=== PATIENT | female | born 1995 | race Caucasian/White ===

== ENCOUNTER → 2017-05-28 | Outpatient (CLI) | payer OTHER ==
[~2017-05-28] MED LIST: FERR1TAB61; FLV1; PRENTAB26 PO
[2017-05-28 13:21] LABS: BASO % 0.3 %; BASO ABS # 0.02 K/uL (0-0.2); COMPLETE YES; EOS % 1.5 %; HEMATOCRIT 28.5 % (37-47); LYMPH % 25.9 %; LYMPH ABS # 2.01 K/uL (1.2-3.4); MEAN CELL VOLUME 84.8 fL (80-100); MEAN CORPUSCULAR HEMOGLOBIN 27.4 pg (25-34); MEAN CORPUSCULAR HGB CONC 32.3 g/dl (32-36); MONO % 7.3 %; PLATELET COUNT 217 K/uL (130-400); RED BLOOD COUNT 3.36 M/uL (4.2-5.4); WHITE BLOOD COUNT 7.77 K/uL (4.8-10.8)
[2017-05-28 13:47] LABS: GTGD 50 Grams
[2017-05-28 15:48] LABS: URINE APPEARANCE CLEAR (CLEAR); URINE BILIRUBIN NEG (NEG); URINE COLOR YELLOW; URINE EPITHELIAL CELL AUTO >30 /lpf (0-5); URINE NITRITE NEG (NEG); URINE SPECIFIC GRAVITY 1.022 (1.000-1.030); UROBILINOGEN NEG (NEG)
[2017-05-28 15:57] LABS: MANUAL MICROSCOPIC REQUIRED? NO; REVIEW REQ? NO
== END | disposition home or self-care (01) ==
LOC: C.LAB1850 11:08
PROVIDERS: ATTEND Obstetrics & Gynecology
DX: O09.33 Supervision of pregnancy with insufficient antenatal care, third trimester (principal)

== ENCOUNTER → 2017-05-28 | Outpatient (CLI) | payer OTHER | END | disposition home or self-care (01) | LOC: C.PAPS 14:11 | PROVIDERS: ATTEND Obstetrics & Gynecology | DX: Z01.411 Encounter for gynecological examination (general) (routine) with abnormal findings (principal); R87.613 High grade squamous intraepithelial lesion on cytologic smear of cervix (HGSIL) ==

== ENCOUNTER → 2017-06-24 | Outpatient (CLI) | payer OTHER | END | disposition home or self-care (01) | LOC: C.PATHSPEC 15:40 | PROVIDERS: ATTEND Obstetrics & Gynecology | DX: R87.613 High grade squamous intraepithelial lesion on cytologic smear of cervix (HGSIL) (principal) ==

== ENCOUNTER → 2017-07-03 | Outpatient (CLI) | payer OTHER | END | disposition home or self-care (01) | LOC: C.LABSPEC 17:58 | PROVIDERS: ATTEND Obstetrics & Gynecology | DX: O09.33 Supervision of pregnancy with insufficient antenatal care, third trimester (principal) ==

== ENCOUNTER 2017-08-04 03:10 | Inpatient (IN) | payer OTHER ==
[~2017-08-04] VITALS: Ht 154.9 cm; Wt 73.0 kg
[2017-08-04] MEDS ORDERED: LACTATED RINGER'S 1000ML 1,000 ML IV SCH (03:44)
[2017-08-04] MEDS ORDERED: LACTATED RINGER'S 1000ML 1,000 ML IV PRN (03:44)
[2017-08-04] MEDS ORDERED: BUPIVACAINE 0.25% 30 ML VIAL ONE (03:47)
[2017-08-04] MEDS ORDERED: EpHEDrine SULFATE INJ 50 MG/ML AMP ONE (03:47)
[2017-08-04] MEDS ORDERED: FENTANYL CITRATE INJ 50 MCG/1 ML 2 ML VIAL ONE (03:48)
[2017-08-04] MEDS ORDERED: FENTANYL 2MCG/ML ROPIV 1.25MG/ML 100ML BAG EPI ONE (03:49)
[2017-08-04 03:50] VITALS: Ht 154.9 cm; Wt 73.0 kg
[2017-08-04 04:13] LABS: HEMATOCRIT 28.5 % (37-47); HEMOGLOBIN 9.3 g/dL (12.0-16.0); MEAN CELL VOLUME 77.4 fL (80-100); MEAN CORPUSCULAR HEMOGLOBIN 25.3 pg (25-34); MEAN CORPUSCULAR HGB CONC 32.6 g/dl (32-36); MEAN PLATELET VOLUME 10.2 fL (7.4-10.4); PLATELET COUNT 197 K/uL (130-400); RED CELL DISTRIBUTION WIDTH CV 13.6 % (11.5-14.5); WHITE BLOOD COUNT 9.82 K/uL (4.8-10.8)
[2017-08-04] MEDS ORDERED: LACTATED RINGER'S 1000ML 500 ML IV PRN (04:59)
[2017-08-04] MEDS ORDERED: FENTANYL 2MCG/ML ROPIV 1.25MG/ML 100ML BAG EPI PRN (05:00)
[2017-08-04] MEDS ORDERED: EpHEDrine SULFATE INJ 50 MG/ML AMP IV PRN (05:00)
[2017-08-04] MEDS ORDERED: NALOXONE HCL INJ 0.4 MG/1 ML VIAL/CARP IV PRN (05:00)
[2017-08-04] MEDS ORDERED: OXYTOCIN 30 UNITS/500ML NSS IV ONE (08:00)
[2017-08-04] MEDS ORDERED: BENZOCAINE 20% AER SPR 82.5 GM CAN EXT PRN (08:30)
[2017-08-04] MEDS ORDERED: HYDROCORTISONE ACETATE 25 MG SUPP PR PRN (08:30)
[2017-08-04] MEDS ORDERED: LANOLIN OINT EXT PRN (08:30)
[2017-08-04] MEDS ORDERED: SUPERCREAM 0.870 % 15GM JAR EXT PRN (08:30)
[2017-08-04] MEDS ORDERED: DIPHTHERIA/TETANUS/PERTUSSIS 0.5 ML SYR/VIAL IM. ONE (08:30)
[2017-08-04] MEDS ORDERED: ACETAMINOPHEN 325 MG TAB PO PRN (08:30)
[2017-08-04] MEDS ORDERED: ACETAMINOPHEN/CODEINE 300/30MG TAB PO PRN ×2 (08:30)
[2017-08-04] MEDS ORDERED: OXYCODONE/ACETAMINOPHEN 5-325 TAB PO PRN (08:30)
[2017-08-04] MEDS ORDERED: OXYTOCIN 30 UNITS/500ML NSS IV PRN (08:30)
--- NOTE | 2017-08-04 09:38 | DELIVERY SUMMARY ---
DATE OF OPERATION: 08/04/2017 Sugar presented in labor on the reading instructor of 08/04/2017. She was 5-6 cm on arrival. Group B strep negative. Requested epidural. At around 6:30 in the morning, AROM was performed. heart rate was category 1 at that time. She rapidly progressed to fully dilated and then delivered a baby in right occiput anterior position. I did have to depress gently the anterior shoulder for delivery as it was somewhat behind the pubis but there was no shoulder dystocia, no excessive force was used and baby was vigorous at , live female. Placenta was removed with gentle traction. IV Pitocin started. Second-degree tear repaired with 3-0 Vicryl. Sponge and instrument counted. Estimated blood loss 300 mL. I attest to the content of the Intraoperative Record and any orders documented therein. Any exception s are noted below.
[2017-08-04 11:10] VITALS: BP 104/64; PULSE 90; TEMP 37; O2SAT 97
[2017-08-04] MEDS: IBUPROFEN 600 MG TAB PO PRN ×3 (11:23→20:41)
--- NOTE | 2017-08-04 12:39 | Anesthesia Procedure Note ---
Anesthesia Epidural Removal Nt Date & Time Aug 04, 2017 at 12:39 Vital Signs Pain Intensity: 5.0 Notes Mental Status: alert / awake / arousable, participated in evaluation Nausea / Vomiting: adequately controlled Pain: adequately controlled Airway Patency, RR, SpO2: stable & adequate BP & HR: stable & adequate Hydration State: stable & adequate Neuraxial Anesthesia: was administered Anesthetic Complications: no major complications apparent, pt satisfied with anesthetic care Epidural: removed without complications, with tip intact
[2017-08-04 13:18] VITALS: BP 104/64; PULSE 90; TEMP 37; O2SAT 97
[2017-08-04 13:21] VITALS: O2SAT 97
[2017-08-04 15:45] VITALS: BP 96/62; PULSE 83; TEMP 36.9; O2SAT 97
--- NOTE | 2017-08-04 16:16 | Discharge Instructions ---
Discharge Instructions Date of Service Aug 04, 2017. Admission Reason for Admission: LABOR Discharge Discharge Diagnosis / Problem: Spontaneous Vaginal Delivery Discharge Goals Goal(s): Routine recovery after delivery Medications Continue Dispensed Medications: supercream, dermaplast, tucks, inhaler, lansinoh Activity Recommendations Activity Limitations: per Instructions/Follow-up section . Instructions / Follow-Up Instructions / Follow-Up Due to abnormal pap, you will need a colposcopy procedure 8 weeks after delivery with [facility] office as directed. ACTIVITY RECOMMENDATIONS: * Gradual return to full activity over the next 2-3 weeks. * No lifting - nothing heavier than baby over the next 2-3 weeks. * Do not engage in vigorous exercise, sexual activity or sports until cleared by your physician. * Do not drive or operate any motorized equipment until cleared by your physician. * You may shower/bathe daily. MEDICATIONS: For discomfort or pain, you may use Acetaminophen (Tylenol), Ibuprofen (Advil), or Naproxen (Aleve) following the package directions. For constipation you may use Colace following the package directions. BREAST CARE: If you are not breast feeding: * Wear a supportive bra 24 hours a day for one to two weeks. * Avoid stimulating your breasts and nipples as much as possible during the first few weeks after delivery. * When taking a shower, have the warm water hit your back, not breasts. * When your breasts feel full, apply ice packs. Usually three to four times a day helps ease the discomfort. * Take a mild pain medication (Tylenol / Motrin) when you are uncomfortable. If breast feeding: * Use breast milk to lubricate nipples. Lansinoh cream may be used for sore nipples. You do not need to remove cream prior to breast feeding. If using a different brand of cream, check the label for directions regarding removal of cream prior to nursing. * Wear a supportive bra. * If having problems with breasts or breast feeding, call a [employer] consultant or your health care provider. EPISIOTOMY CARE: After delivery, if you have an episiotomy (stitches), the following steps will ease discomfort and aid healing. * For the first 24 hours after delivery, place ice packs next to your episiotomy to help reduce swelling. * After the first 24 hour-period, sitz baths, either portable or in the tub, are suggested. A shower with a shower arm sprayed over the episiotomy may be comforting. * Tyra care should be done after each voiding and bowel movement. Squirt warm water from a plastic bottle over the perineum (region of the body between the anus and urinary opening) and pat dry. * Use Dermoplast to ease discomfort. Shake container. [place] directly over the episiotomy. Place a Tucks on a clean sanitary pad next to your episiotomy. SPECIAL CARE INSTRUCTIONS: When you are discharged from the hospital, it is important for you to follow the instructions listed below: * During the first week at home, you should be able to care for yourself and your baby. In addition, the usual light household activities are encouraged. * Limit your activities to the way you feel. Do not try to clean the house or move furniture. Be sensible. * If you actively engage in sports and have done so up until the time of your delivery, you may resume these activities as soon as you feel able. This may take up to one month or even longer. Use good judgment. * Continue to take your vitamins for at least six weeks after the of your baby. * Your diet need not be limited unless you were on a special diet before your delivery. Breast-feeding mothers need around 2500 calories per day and at least 64-80 ounces of fluid per day (8 to 10 glasses). * You should eat foods from the four major food groups. Crash diets or fad diets are to be avoided. Eating lean meats, fresh fruits and vegetables, low-fat dairy products, high fiber foods and a regular exercise program, will help you get back to your pre- weight without putting your health at risk. * Constipation is sometimes a problem after delivery. Take a mild laxative as needed. If breast feeding, Milk of Magnesia is acceptable to use. You may use a suppository or Fleets enema if no episiotomy. * A daily shower or tub bath is suggested. Be sure to thoroughly and gently dry the perineum. * A bloody vaginal discharge will usually continue until around four weeks post . A small amount of bleeding may continue for as long as six weeks. Vaginal discharge changes from the bright red bleeding after delivery to pink then brownish and finally yellowish-pink before becoming white and disappearing. * Bleeding may increase with activity. Your first period may come in 4-8 weeks. If you are breast feeding, your period may be delayed even longer. * [place] (sex) can begin whenever both you and your partner feel comfortable and do not have any form of genital infection. It is recommended that you wait at least six weeks for internal and external healing to occur. If you have questions, please talk to your health care practitioner. A condom should be used to prevent infection and . * Foreplay, gentle intercourse and lubrication is very important the first several times to prevent pain. A water-based lubricant such as K-Y jelly or Astroglide may be used. * If you have RH negative blood and your baby is RH positive, you will receive RHOGAM by injection prior to discharge. The nurse will give you a card to keep with you that has the date and place that you received RHOGAM after delivery. * During your care, you had a Rubella screen done to check for the presence of rubella antibodies in your blood. If your test was negative, you will receive a Rubella vaccine prior to discharge. This vaccine may cause a fever, soreness at the injection site and flu-like symptoms. If these symptoms persist, notify your health care practitioner. is not advised for one month after a Rubella vaccine. * Verbalizes understanding of car seat law as reviewed with patient nursing. * Car Seat hand-out given and reviewed with patient by nursing. * Shaken baby information reviewed with patient by nursing. Call you doctor if: * Heavy bleeding (saturating several pads an hour) or passing clots the size of your fist. * A fever >101 degrees F (38.3 degrees C) on two occasions four hours apart and /or chills. * Unusual pain in the pelvic or vaginal areas. * "Baby Blues" lasting longer than two weeks. If you have any questions or concerns, call your health care practitioner at . FOLLOW UP VISIT: * Please call the office at to schedule a 6 week examination. It is important you keep this appointment. It is important for you to make arrangements for either yearly or twice yearly check-ups thereafter. Current Hospital Diet Patient's current hospital diet: Regular OB Diet Discharge Diet Recommended Diet: Regular Diet Pending Studies Studies pending at discharge: no Medical Emergencies . Who to Call and When: Medical Emergencies: If at any time you feel your situation is an emergency, please call 911 immediately. . Non-Emergent Contact Non-Emergency issues call your: Primary Care Provider . . "Provider Documentation" section prepared by Ingrid Mortensen. . VTE Core Measure Inpt VTE Proph given/why not?: Treatment not indicated Resident Tracking Resident Involvement: Resident Care Provided Care Provided: OB Delivery
[2017-08-04] MEDS ORDERED: ALBUTEROL HFA 8 GM INHALER INH PRN (16:30)
[2017-08-04] MEDS: DOCUSATE SODIUM 100 MG CAP PO SCH (19:45)
[2017-08-04 19:50] VITALS: BP 103/63; PULSE 89; TEMP 36.7; O2SAT 98
[2017-08-04 23:27] VITALS: BP 110/62; PULSE 68; TEMP 37
[2017-08-05] MEDS: IBUPROFEN 600 MG TAB PO PRN ×3 (02:38→17:27)
--- NOTE | 2017-08-05 06:52 | Medical Student: [facility] ---
Med Student CREATIVE LEAD Progress Nt Date of Service Aug 05, 2017. Subjective conversation w/ patient, physical exam, chart review, lab review Ambulation: ambulating normally Voiding: no voiding problems Passing Gas: Yes Diet Tolerance: Regular Diet Lochia: Small (Patient passed moderate lochia yesterday afternoon but significantly decreased into the evening/overnight) Feeding Type: Breast Feeding Pain: 08/23 Review of Systems Constitutional: + fatigue, No fever, No chills, No sweats, No weakness Respiratory: No cough, No sputum, No wheezing, No shortness of breath Cardiac: No chest pain, No edema Breast: No breast pain Abdomen: + constipation, No pain, No nausea, No vomiting, No diarrhea Female : + vaginal discharge (Lochia), No dysuria, No urinary frequency, No hematuria, No incontinence, No abnormal vaginal bleeding Objective Vital Signs Date Time Temp Pulse Resp B/P (MAP) Pulse Ox O2 Delivery O2 Flow Rate FiO2 08/04/17 23:28 Room Air 08/04/17 23:27 37.0 68 18 110/62 (78) Room Air 08/04/17 19:50 36.7 89 16 103/63 (76) 98 08/04/17 15:45 Room Air 08/04/17 15:45 36.9 83 18 96/62 (73) 97 Room Air 08/04/17 11:10 37.0 90 18 104/64 (77) 97 Room Air 08/04/17 11:10 97 Room Air Physical Exam General Appearance: WELL-APPEARING, WD/WN, NO APPARENT DISTRESS Respiratory/Chest: chest non-tender, lungs clear, normal breath sounds, no respiratory distress, no accessory muscle use Cardiovascular: regular rate, rhythm, no edema, no gallop, no JVD, no murmur Abdomen: normal bowel sounds, non tender, soft, no organomegaly Fundus: Firm, Relation to Umbilicus (2cm below umbilicus) Extremities: normal range of motion, non-tender, normal inspection, no pedal edema, no calf tenderness Laboratory Results Last 24 Hours Test 08/05/17 04:44 Assessment and Plan Post- Day Number: 1 Continue Routine Care: -22 year old female . Delivered via spontaneous vaginal delivery at 40 weeks 5 days at 0800 on 08/04. Delivery caused a 2nd degree tear. -Patient is Rubella immune, GBS negative, and has A+ blood. -Patient has been out of bed and walking around the unit. Will continue to encourage ambulation. Patient was congratulated on successfully . Repeat H&H will be reviewed later this morning once available. Continue pain control with NSAIDs prn and treat constipation with docusate prn. Patient will likely be discharged today. Patient has no concerns/questions and reports good support at home.
--- NOTE | 2017-08-05 06:59 | Progress Note ---
Subjective Aug 05, 2017. Subjective conversation w/ patient, physical exam, chart review, lab review Ambulation: ambulating normally Voiding: no voiding problems Passing Gas: Yes Diet Tolerance: Regular Diet Lochia: Moderate Feeding Type: Breast Feeding Pain: controlled Review of Systems Respiratory: No shortness of breath Cardiac: No chest pain, No palpitations Objective Vital Signs Date Time Temp Pulse Resp B/P (MAP) Pulse Ox O2 Delivery O2 Flow Rate FiO2 08/04/17 23:28 Room Air 08/04/17 23:27 37.0 68 18 110/62 (78) Room Air 08/04/17 19:50 36.7 89 16 103/63 (76) 98 08/04/17 15:45 Room Air 08/04/17 15:45 36.9 83 18 96/62 (73) 97 Room Air 08/04/17 11:10 37.0 90 18 104/64 (77) 97 Room Air 08/04/17 11:10 97 Room Air Physical Exam General Appearance: WELL-APPEARING, WD/WN, NO APPARENT DISTRESS Respiratory/Chest: lungs clear, normal breath sounds, no respiratory distress Cardiovascular: regular rate, rhythm Abdomen: soft Fundus: Firm, Non-Tender, Relation to Umbilicus (at U) Extremities: no calf tenderness Laboratory Results Last 24 Hours Test 08/05/17 04:44 Assessment and Plan Post- Day#: 1 Continue Routine Care: 22 yof [id number] 2. Delivered 40-5, 08/04 at 0800, 2nd deg tear. A+/GBS-/RI Vitals reviewed and wnl Hgb stable, no s/s anemia Continue routine post care, encourage ambulation, support, monitor lochia, pain control with motrin and tylenol. Anticipate DC today. Counselled on dc instructions. AMELIA MORTENSEN PGY 1 FMR. Resident Physician Supervision Note: I was present with Dr. Mortensen during the history and exam. I discussed the case with the resident and agree with the findings and plan as documented in the note. Any exceptions or clarifications are listed here: PPD#1 doing well. Patient is requesting discharge today. Discharge instructions discussed. RTO 6w. Documented By: Aurora Capone Resident Tracking Resident Involvement: Resident Care Provided Care Provided: OB Delivery
[2017-08-05] MEDS ORDERED: PRENATAL VITAMIN TAB PO SCH (08:00)
[2017-08-05 08:06] LABS: HEMATOCRIT 23.1 % (37-47); HEMOGLOBIN 7.3 g/dL (12.0-16.0)
[2017-08-05] MEDS: DOCUSATE SODIUM 100 MG CAP PO SCH (08:11)
[2017-08-05 08:25] VITALS: BP 110/64; PULSE 75; TEMP 36.5
[2017-08-05 15:00] VITALS: BP 130/65; PULSE 90; TEMP 36.7
[2017-08-05 18:09] VITALS: BP_DIAS 65; PULSE 90; TEMP 36.7
[2017-08-05] MEDS ORDERED: BISACODYL 5 MG TABEC PO SCH (20:00)
[2017-08-06] MEDS ORDERED: BISACODYL 10 MG SUPP PR PRN (07:00)
== END 2017-08-05 18:25 | disposition home or self-care (01) | DRG 775 ==
LOC: C.LD 03:10 → C.OPB 03:10 → C.LD 03:45 → C.OBG 11:16
PROVIDERS: ADMIT Obstetrics & Gynecology; ATTEND Obstetrics & Gynecology
PROC: 10E0XZZ Delivery of Products of Conception, External Approach (ICD-10-PCS; principal; 2017-08-04)
PROC: 0KQM0ZZ Repair Perineum Muscle, Open Approach (ICD-10-PCS; principal; 2017-08-04)
DX: O48.0 Post-term pregnancy (principal); Z37.0 Single live birth; O70.1 Second degree perineal laceration during delivery; Z3A.40 40 weeks gestation of pregnancy

== ENCOUNTER 2017-08-17 16:38 | Emergency (ER) | payer OTHER ==
[~2017-08-17] VITALS: Ht 160 cm; Wt 62.0 kg
[~2017-08-17 16:38] MED LIST changes: -FLV1
[2017-08-17] MEDS ORDERED: SODIUM CHLORIDE 0.9% 1000ML 1,000 ML IV STA (16:53)
--- NOTE | 2017-08-17 17:22 | EMERGENCY ROOM VISIT NOTE ---
History First contact with patient: 16:43 Chief Complaint: VAGINAL BLEEDING Stated Complaint: VAG BLEEDING History of Present Illness The patient is a 22 year old female who presents to the Emergency Room with complaints of heavy vaginal bleeding. The patient reports that she is 2 weeks , states that her bleeding had slowed down and nearly stopped until 3 days ago when the bleeding became heavy again. Today she states that the bleeding has been much heavier, she has to change her pad every 15-20 minutes for the past few hours, and she has also passed approximately 12 large golf ball sized clots today. She has had increased abdominal cramping and severe low back pain with the bleeding today. She also became dizzy and nearly passed out, which prompted her to call her father who is with EMS, he told her to call an ambulance and come to the emergency department to be evaluated. She is , had a normal vaginal delivery, she reports to stitch for a vaginal tear. She reports a history of low iron and anemia, but has never needed any blood transfusions. She denies any headaches, vision changes, neck pain, chest pain, shortness of breath, fevers or chills, nausea or vomiting, diarrhea, urinary symptoms, foul-smelling vaginal discharge, or rash. She is breast-feeding. Review of Systems A complete 10 point review of systems was reviewed with the patient with pertinent positives and negatives as per history of present illness. All else were negative. Past Medical/Surgical History Medical Problems: (1) Asthma Social History Smoking Status: Former Smoker Alcohol Use: none Marital Status: single Occupation Status: employed Current/Historical Medications Scheduled Multivit/Min/Iron/Fol Ac/Pren ( Vitamin), 1 TAB PO DAILY Miscellaneous Medications Ferrous Sulfate (Iron) Allergies No known drug allergies Physical Exam Vital Signs Date Time Temp Pulse Resp B/P (MAP) Pulse Ox O2 Delivery O2 Flow Rate FiO2 08/17/17 23:11 63 16 113/73 (86) 97 Room Air 08/17/17 23:00 36.8 63 16 104/58 (73) 98 Room Air 08/17/17 22:49 36.4 53 16 109/60 97 Room Air 08/17/17 22:45 36.4 53 16 109/60 97 Room Air 08/17/17 22:35 52 14 109/57 96 Room Air 08/17/17 22:25 60 16 117/70 97 Room Air 08/17/17 22:15 58 18 119/67 96 Room Air 08/17/17 22:09 36.8 62 14 114/59 97 Room Air 08/17/17 20:03 76 16 108/54 99 08/17/17 19:10 36.9 88 16 104/57 98 Room Air 08/17/17 18:14 79 16 100/50 98 Room Air 08/17/17 16:44 37.1 88 16 102/60 99 Room Air Physical Exam CONSTITUTIONAL: Pleasant and cooperative. No acute distress, but does appear pale and mildly dehydrated. HEENT: Normocephalic, atraumatic. Pupils equal, round and reactive to light, EOMI, pale conjunctiva bilaterally. TMs normal. Pharynx normal. Tacky mucous membranes NECK: Supple, full active range of motion without discomfort. No cervical adenopathy. RESPIRATORY: Clear to auscultation bilaterally with no wheezing, crackles, rhonchi or stridor. Equal expansion bilaterally. CARDIOVASCULAR: Regular rate and rhythm with no murmurs, rubs or gallops. Normal peripheral perfusion. No edema. GASTROINTESTINAL: Soft, moderately tender in the suprapubic region, the abdomen is otherwise nontender, nondistended. No rebound tenderness or guarding. No CVA tenderness. No palpable masses or HSM. Bowel sounds present in all quadrants. PELVIC EXAM: VULVA: No ulcers, vesicles or atrophy. VAGINA: Moderate amount of bloody discharge and small clots noted, no foul odor. CERVIX: Open to 2 fingerbreadths, positive cervical motion tenderness, unable to discern discharge , no palpable material within the cervical os. UTERUS: Enlarged, tender. ADNEXA: No masses or tenderness. A nurse was present as a peg driver during the examination. MUSCULOSKELETAL: Full range of motion of all joints without discomfort. INTEGUMENTARY: No rash or other significant dermatologic conditions noted. NEUROLOGIC: Alert and oriented X 4 with normal affect. Normal speech. No focal neurologic deficits noted. Normal gait observed. Medical Decision & Procedures ER Provider Diagnostic Interpretation: PELVIC COMPLETE NON OB CLINICAL HISTORY: 22 years-old Female presenting with 2wks post-, heavy bleeding, eval retained product. TECHNIQUE: Real-time grayscale and color and spectral Doppler ultrasound imaging of the pelvis was performed using a transabdominal probe. COMPARISON: None. FINDINGS: Uterus: Globular and enlarged with hypoechoic, likely edematous, myometrium. Anteverted. The uterus measures 12.1 x 6.4 x 9.0 cm. Endometrial stripe measures 20 mm in thickness. Endometrium thickened, heterogeneous, and hyperemic. Additionally, focal low resistance flow noted at the posterior fundus. Cervix not well visualized. Right adnexa: Right ovary normal. Right ovary measures 3.3 x 1.9 x 2.6 cm. Normal color Doppler flow and arterial and venous waveforms within the ovarian parenchyma. Left adnexa: Left ovary normal. Left ovary measures 2.8 x 3.6 x 1.3 cm. Normal color Doppler flow and arterial and venous waveforms within the ovarian parenchyma. Other: No free fluid. IMPRESSION: 1. Focal low resistance vascular flow noted at the posterior fundal endometrium. This is suggestive of retained product of conception. 2. Normal ovaries. Laboratory Results 08/17/17 17:19 Red Blood Count 3.34, Mean Corpuscular Volume 78.1, Mean Corpuscular Hemoglobin 24.3, Mean Corpuscular Hemoglobin Concent 31.0, Mean Platelet Volume 9.6, Neutrophils (%) (Auto) 72.5, Lymphocytes (%) (Auto) 19.7, Monocytes (%) (Auto) 4.4, Eosinophils (%) (Auto) 2.5, Basophils (%) (Auto) 0.3, Neutrophils # (Auto) 7.67, Lymphocytes # (Auto) 2.09, Monocytes # (Auto) 0.47, Eosinophils # (Auto) 0.27, Basophils # (Auto) 0.03 08/17/17 17:19 Test 08/17/17 17:19 08/17/17 17:35 White Blood Count 10.59 K/uL (4.8-10.8) Red Blood Count 3.34 M/uL (4.2-5.4) Hemoglobin 8.1 g/dL (12.0-16.0) Hematocrit 26.1 % (37-47) Mean Corpuscular Volume 78.1 fL (80-100) Mean Corpuscular Hemoglobin 24.3 pg (25-34) Mean Corpuscular Hemoglobin Concent 31.0 g/dl (32-36) Platelet Count 253 K/uL (130-400) Mean Platelet Volume 9.6 fL (7.4-10.4) Neutrophils (%) (Auto) 72.5 % Lymphocytes (%) (Auto) 19.7 % Monocytes (%) (Auto) 4.4 % Eosinophils (%) (Auto) 2.5 % Basophils (%) (Auto) 0.3 % Neutrophils # (Auto) 7.67 K/uL (1.4-6.5) Lymphocytes # (Auto) 2.09 K/uL (1.2-3.4) Monocytes # (Auto) 0.47 K/uL (0.11-0.59) Eosinophils # (Auto) 0.27 K/uL (0-0.5) Basophils # (Auto) 0.03 K/uL (0-0.2) RDW Standard Deviation 41.3 fL (36.4-46.3) RDW Coefficient of Variation 14.7 % (11.5-14.5) Immature Granulocyte % (Auto) 0.6 % Immature Granulocyte # (Auto) 0.06 K/uL (0.00-0.02) Polychromasia 1+ Tear Drop Cells 1+ Ovalocytes 1+ Prothrombin Time 10.9 SECONDS (9.0-12.0) Prothromb Time International Ratio 1.0 (0.9-1.1) Activated Partial Thromboplast Time 25.7 SECONDS (21.0-31.0) Partial Thromboplastin Ratio 1.0 Anion Gap 11.0 mmol/L (3-11) Est Creatinine Clear Calc Drug Dose 147.7 ml/min Estimated GFR () > 150.0 Estimated GFR (Non- 137.3 BUN/Creatinine Ratio 23.3 (10-20) Calcium Level 6.9 mg/dl (8.5-10.1) Total Bilirubin 0.3 mg/dl (0.2-1) Aspartate Amino Transf (AST/SGOT) 23 U/L (15-37) Alanine Aminotransferase (ALT/SGPT) 24 U/L (12-78) Alkaline Phosphatase 70 U/L (45-117) Total Protein 5.3 gm/dl (6.4-8.2) Albumin 2.5 gm/dl (3.4-5.0) Globulin 2.8 gm/dl (2.5-4.0) Albumin/Globulin Ratio 0.9 (0.9-2) Chemistry Specimen Hemolysis Urine Color RED Urine Appearance CLOUDY (CLEAR) Urine pH 5.5 (4.5-7.5) Urine Specific [place] >= 1.030 (1.000-1.030) Urine Protein 2+ (NEG) Urine Glucose (UA) NEG (NEG) Urine Ketones TRACE (NEG) Urine Occult Blood 3+ (NEG) Urine Nitrite NEG (NEG) Urine Bilirubin NEG (NEG) Urine Urobilinogen NEG (NEG) Urine Leukocyte Esterase TRACE (NEG) Urine RBC >30 /hpf (0-4) Urine WBC >30 /hpf (0-5) Urine Epithelial Cells >30 /lpf (0-5) Urine Bacteria 1+ (NEG) Medications Administered Medications (Trade) Dose Ordered Sig/Tito Route Start Time Stop Time Status Last Admin Dose Admin Sodium Chloride 1,000 ml @ 999 mls/hr Q1H1M STAT IV 08/17/17 16:53 08/17/17 17:53 DC 08/17/17 16:53 999 MLS/HR Medical Decision CC: Patient presenting with complaint of heavy vaginal bleeding Interpretation of Labs: No leukocytosis, anemia (appears consistent with previous baseline), no significant loculated abnormalities, normal renal function, normal liver enzymes. Normal coagulation factors. UA consistent with contamination. Differential Diagnosis: Includes, but not limited to dysmenorrhea, dysfunctional uterine bleeding, hemorrhage, retained products of conception, anemia, among others. Medication Reconciliation: I attest that I have personally reviewed the patient' s current medication list. Initial vital signs review: I reviewed the patient's vital signs and interpret them as follows: T: Afebrile; BP: Normotensive; HR: Within normal limits; RR : Within normal limits; Pulse Ox: Within normal limits on room air. Blood pressure screening: The patient was found to have normal blood pressure on screening and does not require follow-up for repeat blood pressure check. Summary: Patient was evaluated at bedside, history and physical exam performed. Patient is alert and oriented, no acute distress, resting, and stretcher. She does appear mildly pale and dehydrated. She is tender in the suprapubic region of the abdomen on exam. Orders were placed at bedside for labs, IV fluids for hydration, pelvic ultrasound to evaluate for retained products of conception. Patient discussed with Dr. Rogers, who agrees with my assessment and plan. Labs reviewed as above, notable for anemia, although this appears to be slightly improved from her baseline on discharge 2 weeks ago. Pelvic ultrasound reviewed, concerning for retained products of conception. I spoke with Dr. Vazquez, OB, regarding the patient's heavy bleeding, large clots , and concern for products of conception. She did request that I perform a pelvic exam on the patient. Pelvic exam was performed, however the patient did not tolerate this well due to pain and discomfort. The cervix was not able to be visualized during the speculum exam due to patient's discomfort, as well as bloody discharge within the vaginal vault. I did speak again with Dr. Vazquez, OB, regarding pelvic exam findings and concern for heavy vaginal bleeding. She agreed to evaluate the patient, with most likely plans to take her to the OR today. Patient reassessed multiple times throughout ED stay, she remained stable, with normal vital signs. I updated the patient on all results and concern for retained products, and plan for evaluation by the OB provider. Dr. Vazquez evaluated the patient and is planning to take her to the OR tonight for a D&C procedure. Impression Primary Impression: Abnormal vaginal bleeding Additional Impression: Retained products of conception, following delivery with hemorrhage Departure Information Dispostion Being Evaluated By Surgeon Condition FAIR Referrals No Doctor, Assigned (PCP) Patient Instructions [facility] Problem Qualifiers
[2017-08-17 17:24] VITALS: Ht 160 cm; Wt 62.0 kg
[2017-08-17 17:33] LABS: BASO % 0.3 %; BASO ABS # 0.03 K/uL (0-0.2); EOS % 2.5 %; EOS ABS # 0.27 K/uL (0-0.5); HEMATOCRIT 26.1 % (37-47); HEMOGLOBIN 8.1 g/dL (12.0-16.0); IG# 0.06 K/uL (0.00-0.02); LYMPH % 19.7 %; LYMPH ABS # 2.09 K/uL (1.2-3.4); MEAN CELL VOLUME 78.1 fL (80-100); MEAN CORPUSCULAR HEMOGLOBIN 24.3 pg (25-34); MEAN PLATELET VOLUME 9.6 fL (7.4-10.4); MONO % 4.4 %; MONO ABS # 0.47 K/uL (0.11-0.59); NEUT % 72.5 %; NEUT ABS # 7.67 K/uL (1.4-6.5); PLATELET COUNT 253 K/uL (130-400); RED CELL DISTRIBUTION WIDTH CV 14.7 % (11.5-14.5); RED CELL DISTRIBUTION WIDTH SD 41.3 fL (36.4-46.3); WHITE BLOOD COUNT 10.59 K/uL (4.8-10.8)
[2017-08-17 17:43] LABS: PTT PATIENT 25.7 SECONDS (21.0-31.0)
[2017-08-17 17:53] LABS: ALBUMIN 2.5 gm/dl (3.4-5.0); ALT/SGPT 24 U/L (12-78); BLOOD UREA NITROGEN 11 mg/dl (7-18); CALCIUM 6.9 mg/dl (8.5-10.1); CARBON DIOXIDE 21 mmol/L (21-32); CREATININE 0.49 mg/dl (0.60-1.20); GLUCOSE 88 mg/dl (70-99); POTASSIUM 3.8 mmol/L (3.5-5.1); SODIUM 145 mmol/L (136-145)
[2017-08-17 17:55] LABS: ALKALINE PHOSPHATASE 70 U/L (45-117); AST/SGOT 23 U/L (15-37); TOTAL PROTEIN 5.3 gm/dl (6.4-8.2)
--- NOTE | 2017-08-17 18:21 | DIAGNOSTIC IMAGING REPORT ---
PELVIC COMPLETE NON OB CLINICAL HISTORY: 22 years-old Female presenting with 2wks post-, heavy bleeding, eval retained product. TECHNIQUE: Real-time grayscale and color and spectral Doppler ultrasound imaging of the pelvis was performed using a transabdominal probe. COMPARISON: None. FINDINGS: Uterus: Globular and enlarged with hypoechoic, likely edematous, myometrium. Anteverted. The uterus measures 12.1 x 6.4 x 9.0 cm. Endometrial stripe measures 20 mm in thickness. Endometrium thickened, heterogeneous, and hyperemic. Additionally, focal low resistance flow noted at the posterior fundus. Cervix not well visualized. Right adnexa: Right ovary normal. Right ovary measures 3.3 x 1.9 x 2.6 cm. Normal color Doppler flow and arterial and venous waveforms within the ovarian parenchyma. Left adnexa: Left ovary normal. Left ovary measures 2.8 x 3.6 x 1.3 cm. Normal color Doppler flow and arterial and venous waveforms within the ovarian parenchyma. Other: No free fluid. IMPRESSION: 1. Focal low resistance vascular flow noted at the posterior fundal endometrium. This is suggestive of retained product of conception. 2. Normal ovaries. Electronically signed by: Rio Church M.D. 08/17/2017 6:20 PM Dictated Date/Time: 08/17/2017 6:17 PM
--- NOTE | 2017-08-17 19:10 | EMERGENCY ROOM VISIT NOTE ---
ED Visit Note First contact with patient: 16:43 The patient was seen and examined with Piper Huffman NP. I agree with the history, physical and findings. Please see the note for disposition and details.ultrasound is concerning for retained products. Dr. Vazquez of [facility] was consulted and evaluated the patient in the Emergency Room for further management.
[2017-08-17] MEDS ORDERED: LACTATED RINGER'S 1000ML 1,000 ML IV SCH (19:47)
[2017-08-17] MEDS ORDERED: CEFAZOLIN SOD 2000MG/15 ML IV PUSH IV ONE (19:52)
[2017-08-17 20:03] VITALS: O2SAT 99
--- NOTE | 2017-08-17 20:08 | GYNECOLOGICAL CONSULTATION ---
DATE OF CONSULTATION: 08/17/2017 CC: vaginal bleeding HISTORY OF PRESENT ILLNESS: A 22-year-old 2, para 1-0-0-1 now approximately 2 weeks from a normal spontaneous vaginal delivery on 08/04/2017 who presents to the Emergency Department with heavy vaginal bleeding for the past 2-3 days whom I was asked to see on consult by the Emergency Room provider, Izabella. The patient reports that she had a normal vaginal delivery. She had a normal course. Her hemoglobin starting at the time of her labor was rather low at 9.3 and post-delivery was 7.3. However, she was tolerating this and was sent home with a plan for iron. She is breast feeding her baby. Approximately on Friday she began with increased bleeding. She was changing her product every hour and a half. Earlier today, it began to worsen including passage of large clots, soiling of her clothes when standing and changing her pads every 20 minutes. She did have some symptoms of dizziness, lightheadedness and therefore called for ambulance transport to the Emergency Room. In her Emergency Room evaluation today, the Emergency Room provider noted that the patient was having increased bleeding when she was upright. She was not soaking as many Chux or pads as she had noted prior to her arrival. She did have an ultrasound that was showing evidence of retained products of conception at the posterior fundus of the uterus. The uterus measured 12.1 x 6.4 x 9 cm and the stripe was 20 mm in thickness, but there was a heterogeneous hyperemic suggestion of tissue again at the posterior fundus. The patient is Rh positive. PAST MEDICAL HISTORY: Arnold-Chiari malformation type 1, asthma, migraine headache, high grade cervical precancer, eczema PAST SURGICAL HISTORY: Chiari malformation surgery. SOCIAL HISTORY: She is a smoker. No history of drugs or alcohol use. FAMILY HISTORY: Noncontributory. OBSTETRIC HISTORY: Vacuum assisted vaginal delivery in 2014. Recent spontaneous vaginal delivery on 08/04/2017. GYNECOLOGIC HISTORY: Abnormal Pap smear as noted, high-grade cervical biopsy with need for Pap with colposcopy. ALLERGIES: DUST MITES. No known drug allergies. MEDICATIONS: Ventolin inhaler, Fioricet as needed, vitamins, iron. REVIEW OF SYSTEMS: As above. The patient currently denies any chest pain, shortness of breath, dizziness, lightheadedness. She is her baby and wonders about that. She has no bowel or bladder complaints. She denies abdominal pain. No fevers or chills. PHYSICAL EXAMINATION: VITAL SIGNS: 36.9 temp, 88 pulse, 16 respirations, 104/57 blood pressure, pulse ox 98% on room air. GENERAL: She is a well-developed, well-nourished female in no acute distress, sitting upright in her bed, smiling at times. SPRAGGER: Perineum shows no active bleeding. No bleeding on the Chux. Ext nt calves. Abdomen nontender ASSESSMENT: 1. Retained products of conception suspected. 2. Delayed hemorrhage. 3. Anemia. PLAN: I discussed with the patient and her family the findings today on ultrasound as well as her history. Given the amount of bleeding that she is having, her current hemoglobin and suggested evidence of retained placental tissue in the posterior fundus, it is recommended that we proceed to dilatation, evacuation and curettage. Her alternatives include not doing this and trying to use medications to see if the tissue will pass. The consequences of not doing it would be continued bleeding with worsening anemia. Risks, alternatives and complications were discussed with the patient and included but were not limited to bleeding, infection, anesthesia, injury to the bowel, bladder, vessels, nerves, ureters, perforation of the uterus requiring laparoscopy, delayed complication, persistent retained products of conception. I explained to the patient under these circumstances we will utilize ultrasound guidance to try to help to ensure that removal of the retained tissue. She signed the consent form and desires to proceed. The operating room and anesthesia staff have been notified. Plan preoperative antibiotics. ROHIT
[2017-08-17] MEDS ORDERED: PROPOFOL IV EMULSION 10 MG/ML 20 ML VIAL IV ONE (20:19)
[2017-08-17] MEDS ORDERED: OXYTOCIN INJ 10 UNITS/ML VIAL ONE (20:19)
[2017-08-17] MEDS ORDERED: LIDOCAINE HCL 2% 2 ML VIAL (20MG/ML) ONE (20:19)
[2017-08-17] MEDS ORDERED: SUCCINYLCHOLINE CHLORIDE 20 MG/ML 10 ML VIAL IV ONE (20:19)
[2017-08-17] MEDS ORDERED: ROCURONIUM BROMIDE 10 MG/ML 5 ML VIAL IV ONE (20:19)
[2017-08-17] MEDS ORDERED: MIDAZOLAM HCL 1 MG/ML 2ML VIAL ONE (20:24)
[2017-08-17] MEDS ORDERED: FENTANYL CITRATE INJ 50 MCG/1 ML 2 ML VIAL ONE (20:24)
[2017-08-17] MEDS ORDERED: METHYLERGONOVINE MALEATE 0.2 MG/ML AMP ONE (21:46)
[2017-08-17] MEDS ORDERED: SODIUM CHLORIDE 0.9% 1000ML 1,000 ML IV SCH (21:56)
--- NOTE | 2017-08-17 21:56 | [facility] Post Operative Brief Note ---
Immediate Operative Summary Operative Date Aug 17, 2017. Pre-Operative Diagnosis hemorrhage, delayed, retained products of conception Post-Operative Diagnosis same Procedure(s) Performed D&E&C Surgeon George Store Standards Associate Surgeon(s) none Estimated Blood Loss 10 Findings See Below preprocedure uterus 12 weeks, about 10 wks and firm postprocedure,lg poc Fluids (cc crystalloids) 500 Specimens products of conception Drains None Anesthesia Type General Complication(s) none Disposition Disposition: Recovery Room / PACU
[2017-08-17] MEDS ORDERED: ONDANSETRON INJ 2 MG/ML 2 ML VIAL IV PRN ×2 (22:00→22:30)
[2017-08-17] MEDS ORDERED: KETOROLAC TROMETHAMINE 30 MG/ML VIAL IV. PRN (22:00)
[2017-08-17] MEDS ORDERED: IBUPROFEN 600 MG TAB PO PRN (22:00)
[2017-08-17] MEDS ORDERED: OXYCODONE/ACETAMINOPHEN 5-325 TAB PO PRN ×2 (22:00)
--- NOTE | 2017-08-17 22:00 | Discharge Instructions ---
Discharge Instructions Date of Service Aug 17, 2017. Admission Reason for Admission: Vag Bleeding Discharge Discharge Diagnosis / Problem: after surgery Discharge Goals Goal(s): Routine recovery after surgery Activity Recommendations Activity Limitations: as noted below . Instructions / Follow-Up Instructions / Follow-Up ACTIVITY RECOMMENDATIONS: * Avoid tampons, douching, hot tubs, pools, and intercourse until 6 weeks visit. * May shower as usual. * No strenuous activity for 24-48 hours. Then resume usual instructions. SPECIAL CARE INSTRUCTIONS: Special Diet: * Mild nausea may occur in the immediate post-operative period. * Take clear liquids such as tea, cola or bouillon until all nausea has subsided; you may then resume your normal diet. Special Care: * Bleeding will continue like in a normal course Call your doctor if bleeding becomes heavier than the heaviest part of your period. * Check your temperature twice a day for one week. If it goes above 100.4 degrees Fahrenheit (38.0 Celsius), notify your doctor. * Call your doctor's office for an appointment for 2 weeks after your surgery. FOLLOW-UP VISIT: Call your doctor's office for an appointment for 2 weeks after your surgery. This will be in addition to your [address] Baldwin. Current Hospital Diet Patient's current hospital diet: Discharge Diet Recommended Diet: Regular Diet Procedures Procedures Performed: D&E&C Pending Studies Studies pending at discharge: yes List of pending studies: pathology Medical Emergencies . Who to Call and When: Medical Emergencies: If at any time you feel your situation is an emergency, please call 911 immediately. . Non-Emergent Contact Non-Emergency issues call your: [facility] . . "Provider Documentation" section prepared by Leeann Vazquez. . VTE Core Measure Inpt VTE Proph given/why not?: Treatment not indicated
[2017-08-17] MEDS ORDERED: EpHEDrine SULFATE INJ 50 MG/ML AMP IV PRN (22:30)
[2017-08-17] MEDS ORDERED: ATROPINE SULFATE 0.1 MG/ML 5ML SYR IV PRN (22:30)
[2017-08-17] MEDS ORDERED: FENTANYL CITRATE INJ 50 MCG/1 ML 2 ML VIAL IV PRN (22:30)
[2017-08-17] MEDS ORDERED: PROMETHAZINE HCL INJ 6.25 MG in SODIUM CHLORIDE 0.9% 50ML 50 ML IV PRN (22:30)
--- NOTE | 2017-08-17 22:46 | OPERATIVE REPORT ---
DATE OF OPERATION: 08/17/2017 PREOPERATIVE DIAGNOSES: 1. Delayed hemorrhage. 2. Retained products of conception. 3. Anemia. POSTOPERATIVE DIAGNOSES: Same. PROCEDURE: 1. Dilatation and evacuation and curettage. 2. Ultrasound guidance. SURGEON: Leeann Vazquez MD. DOUGH MOLDER HAND: None. IV FLUIDS: 500 mL. ESTIMATED BLOOD LOSS: 10 mL. ANESTHESIA: General. FINDINGS: Uterus 12 weeks' size. Preprocedure large products of conception, firm mobile post procedure. INDICATIONS: This is a 22-year-old 2, para 1-0-0-1 who presented to the Emergency Department with increased vaginal bleeding over the course of last couple of days that escalated to every 20 minute pad changes with clots. An ultrasound showed likely retained products of conception and given these findings and her symptoms and hemoglobin, the decision was made to proceed with surgical management. DESCRIPTION OF PROCEDURE: The patient was taken to the operating room and identified. After adequate general anesthesia was obtained, she was placed in dorsolithotomy position and prepped and draped in the usual sterile fashion. The bladder was drained under sterile conditions for clear yellow urine. A weighted speculum and anterior retractor were placed to visualize the cervix which was grasped on its anterior lip with an Allis clamp. The cervix was visibly dilated. The exam findings were as noted above. A 12 mm suction curette was gently placed through the cervical os into the uterine cavity with ultrasound observing abdominally. The uterus was cleared of its contents in multiple passes. A sharp curettage took place and ultrasound confirmed no further remaining products of conception. IV dilute Pitocin was administered as well as IM Methergine 0.2 mg per my order. At this point, the procedure was terminated. The patient was returned to supine position and awoken from anesthesia. She was transferred to the recovery room in stable condition. All sponge, lap and needle counts were correct x2. I attest to the content of the Intraoperative Record and any orders documented therein. Any exceptions are noted below. MTDD
--- NOTE | 2017-08-17 22:46 | Anesthesiology Progress Note ---
Anesthesia Post Op Note Date & Time Aug 17, 2017 at 22:46 Vital Signs Pain Intensity: 0 Vital Signs Past 12 Hours Date Time Temp Pulse Resp B/P (MAP) Pulse Ox O2 Delivery O2 Flow Rate FiO2 08/17/17 22:35 52 14 109/57 96 Room Air 08/17/17 22:25 60 16 117/70 97 Room Air 08/17/17 22:15 58 18 119/67 96 Room Air 08/17/17 22:09 36.8 62 14 114/59 97 Room Air 08/17/17 20:03 76 16 108/54 99 08/17/17 19:10 36.9 88 16 104/57 98 Room Air 08/17/17 18:14 79 16 100/50 98 Room Air 08/17/17 16:44 37.1 88 16 102/60 99 Room Air Notes Mental Status: alert / awake / arousable, participated in evaluation Pt Amnestic to Procedure: Yes Nausea / Vomiting: adequately controlled Pain: adequately controlled Airway Patency, RR, SpO2: stable & adequate BP & HR: stable & adequate Hydration State: stable & adequate Anesthetic Complications: no major complications apparent
[2017-08-17 22:49] VITALS: BP 109/60; PULSE 53; TEMP 36.4; O2SAT 97
[2017-08-17 23:00] VITALS: TEMP 36.8
[2017-08-17 23:13] VITALS: BP 113/73; PULSE 63; O2SAT 97
[2017-08-17 23:25] VITALS: BP 110/42; O2SAT 97
[2017-08-18] MEDS ORDERED: CEFAZOLIN SOD 2000MG/15 ML IV PUSH IV ONE (06:00)
--- NOTE | 2017-08-18 08:06 | DIAGNOSTIC IMAGING REPORT ---
GUIDANCE INTRAOPERATIVE HISTORY: 22 years-old Female retained pocs, retained products of conception. COMPARISON: Pelvic ultrasound 08/17/2017 TECHNIQUE: Intraoperative sonographic images of the pelvis were obtained during a D&C procedure. Radiologist was not present during the study. Grayscale and color Doppler images provided. FINDINGS: Endometrium appears thickened and heterogeneous. Hypoechoic material is noted within the endometrial canal without definite internal vascularity identified. No definite intrauterine or extra uterine gestation identified. IMPRESSION: Sonographic images provided as above. Please see operative report for further details. The above report was generated using voice recognition software. It may contain grammatical, syntax or spelling errors. Electronically signed by: Kleber Ponce M.D. 08/18/2017 8:04 AM Dictated Date/Time: 08/18/2017 7:57 AM
== END 2017-08-17 20:04 | disposition still patient (30) ==
LOC: EDBD 16:38 → C.EDC 16:40
DX: O72.0 Third-stage hemorrhage (principal); O90.81 Anemia of the puerperium; J45.909 Unspecified asthma, uncomplicated; Z87.891 Personal history of nicotine dependence

== ENCOUNTER → 2017-10-03 | Outpatient (CLI) | payer OTHER ==
[~2017-10-03] MED LIST changes: -FERR1TAB61; +FERR1TAB61 PO
== END | disposition home or self-care (01) ==
LOC: C.PAPS 16:06
PROVIDERS: ATTEND Obstetrics & Gynecology
DX: R87.613 High grade squamous intraepithelial lesion on cytologic smear of cervix (HGSIL) (principal)

== ENCOUNTER → 2017-10-03 | Outpatient (CLI) | payer OTHER | END | disposition home or self-care (01) | LOC: C.PATHSPEC 15:45 | PROVIDERS: ATTEND Obstetrics & Gynecology | DX: R87.613 High grade squamous intraepithelial lesion on cytologic smear of cervix (HGSIL) (principal); N72 Inflammatory disease of cervix uteri ==

== ENCOUNTER → 2017-10-20 | Outpatient (CLI) | payer OTHER ==
[2017-10-20 15:46] LABS: BASO % 0.5 %; BASO ABS # 0.03 K/uL (0-0.2); EOS % 1.5 %; HEMATOCRIT 30.9 % (37-47); HEMOGLOBIN 9.3 g/dL (12.0-16.0); IG# 0.02 K/uL (0.00-0.02); LYMPH % 34.2 %; LYMPH ABS # 2.23 K/uL (1.2-3.4); MEAN CELL VOLUME 67.8 fL (80-100); MEAN CORPUSCULAR HEMOGLOBIN 20.4 pg (25-34); MEAN CORPUSCULAR HGB CONC 30.1 g/dl (32-36); MEAN PLATELET VOLUME 10.1 fL (7.4-10.4); MONO % 6.9 %; MONO ABS # 0.45 K/uL (0.11-0.59); NEUT % 56.6 %; PLATELET COUNT 283 K/uL (130-400); RED CELL DISTRIBUTION WIDTH CV 17.1 % (11.5-14.5); RED CELL DISTRIBUTION WIDTH SD 42.5 fL (36.4-46.3); WHITE BLOOD COUNT 6.53 K/uL (4.8-10.8)
== END | disposition home or self-care (01) ==
LOC: C.LAB1850 14:23
PROVIDERS: ATTEND Obstetrics & Gynecology
DX: Z01.818 Encounter for other preprocedural examination (principal)

== ENCOUNTER → 2017-10-22 | Day surgery (SDC) | payer OTHER ==
[2017-10-13 07:33] VITALS: Ht 152.4 cm; Wt 68.2 kg
[~2017-10-22] VITALS: Ht 152.4 cm; Wt 68.2 kg
[~2017-10-22] MED LIST changes: +ACETIC ACID 4% (WHITE VINEGAR) 30ML ONE; +ATROPINE SULFATE 0.1 MG/ML 5ML SYR IV PRN; +EpHEDrine SULFATE INJ 50 MG/ML AMP IV PRN; +FENTANYL CITRATE INJ 50 MCG/1 ML 2 ML VIAL IV PRN; +FENTANYL CITRATE INJ 50 MCG/1 ML 2 ML VIAL ONE; +FERRIC SUBSULFATE 8 GM VIAL ONE; +IBUPROFEN 200 MG TAB ONE; +IBUPROFEN 600 MG TAB PO PRN; +IODINE SOLN STRONG 14 ML ONE; +KETOROLAC TROMETHAMINE 30 MG/ML VIAL IV. PRN; +KETOROLAC TROMETHAMINE 30 MG/ML VIAL ONE; +LACTATED RINGER'S 1000ML 1,000 ML IV SCH; +LIDO 2%/EPINEPHRINE 1:100000 20 ML VIAL INFIL ONE; +LIDOCAINE HCL 2% 2 ML VIAL (20MG/ML) ONE; +MIDAZOLAM HCL 1 MG/ML 2ML VIAL ONE; +MoRPHine SULFATE 2 MG/ML CARP IV PRN; +MoRPHine SULFATE 4 MG/ML 1 ML CARP\\VIAL IV PRN; +ONDANSETRON INJ 2 MG/ML 2 ML VIAL ONE; +OXYCODONE/ACETAMINOPHEN 5-325 TAB PO PRN; +PROPOFOL IV EMULSION 10 MG/ML 20 ML VIAL IV ONE; +SODIUM CHLORIDE 0.9% 1000ML 1,000 ML IV SCH
--- NOTE | 2017-10-22 13:57 | History & Physical Bridge - [place] ---
H&P Re-Evaluation Bridge Note: I have examined the patient, reviewed the History & Physical and in the interval since the performance of the History & Physical I have noted the following changes of clinical significance: No changes noted
--- NOTE | 2017-10-22 15:20 | [facility] Post Operative Brief Note ---
Immediate Operative Summary Operative Date Oct 22, 2017. Pre-Operative Diagnosis TRACI III Post-Operative Diagnosis Same as pre-op Procedure(s) Performed Top Hat LEEp with Endocervical Curettings Surgeon Hospitality Housekeeper Surgeon(s) None Estimated Blood Loss 50ML Findings Consistent with Post-Op Diagnosis Fluids (cc crystalloids) 500cc Specimens A.Anterior lip B.Posterior lip C.Endocervix D. Endocervical curettings above the endocervix Drains None Anesthesia Type MAC Complication(s) none Disposition Accompanied Pt To Recovery: no Disposition: Recovery Room / PACU
--- NOTE | 2017-10-22 15:21 | Discharge Instructions ---
Discharge Instructions Date of Service Oct 22, 2017. Visit Reason for Visit: Pap Smear Abnormality Of Cervix With Hgsil Discharge Discharge Diagnosis / Problem: s/p leep Discharge Goals Goal(s): Specific goals Activity Recommendations Activity Limitations: per Instructions/Follow-up section Anesthesia . Post Anesthesia Instructions: If you have had General Anesthesia or IV Sedation: * Do not drive today. * Resume driving when surgeon permits. * Do not make important decisions or sign legal documents today. * Call surgeon for: 1. Temperature elevations greater than 101 degrees F. 2. Uncontrollable pain. 3. Excessive bleeding. 4. Persistent nausea and vomiting. 5. Medication intolerance (nausea, vomiting or rash). * For nausea and vomiting use only clear liquids such as: tea, soda, bouillon until nausea subsides, then gradually increase diet as tolerated. * If you have any concerns or questions, call your surgeon's office. If physician is unavailable and it is an emergency, call 911 or go to the nearest emergency room. . Instructions / Follow-Up Instructions / Follow-Up ACTIVITY RECOMMENDATIONS: * Avoid tampons, douching, hot tubs, pools, and intercourse for 4 weeks. * May shower as usual. * No strenuous activity for 48 hours. After 48 hours, you may do anything you feel like doing (driving and sports are okay). SPECIAL CARE INSTRUCTIONS: Special Diet: * Mild nausea may occur in the immediate post-operative period. * Take clear liquids such as tea, cola or bouillon until all nausea has subsided; you may then resume your normal diet. Special Care: * Light bleeding and vaginal spotting can last from a few days to 3-4 weeks. Call your doctor if bleeding becomes heavier than the heaviest part of your period. * Check your temperature twice a day for one week. If it goes above 100.4 degrees Fahrenheit (38.0 Celsius), notify your doctor. * Call your doctor's office for an appointment for 4 weeks after your surgery. FOLLOW-UP VISIT: Call your doctor's office for an appointment for 4 weeks after your surgery. Diet Recommendations Recommended Home Diet: no limitations, resume previous diet Procedures Procedures Performed: Top Hat LEEp with Endocervical Curettings Pending Studies Studies pending at discharge: no Medical Emergencies . Who to Call and When: Medical Emergencies: If at any time you feel your situation is an emergency, please call 911 immediately. . Non-Emergent Contact Non-Emergency issues call your: Segment Block Layer . . "Provider Documentation" section prepared by Ana Lilia Red. .
[2017-10-22 15:31] VITALS: TEMP 36.7
--- NOTE | 2017-10-22 15:57 | Anesthesia Progress Nt - [facility] ---
Anesthesia Post Op Note Date & Time Oct 22, 2017 at 15:56 Vital Signs Pain Intensity: 1.0 Vital Signs Past 12 Hours Date Time Temp Pulse Resp B/P (MAP) Pulse Ox O2 Delivery O2 Flow Rate FiO2 10/22/17 15:31 36.7 66 16 88/46 (60) 98 Room Air 10/22/17 13:39 36.7 65 16 93/57 (69) 98 Room Air Notes Mental Status: alert / awake / arousable, participated in evaluation Pt Amnestic to Procedure: Yes Nausea / Vomiting: adequately controlled Pain: adequately controlled Airway Patency, RR, SpO2: stable & adequate BP & HR: stable & adequate Hydration State: stable & adequate Anesthetic Complications: no major complications apparent The patient felt well in discharge with no complaints. Last BP on discharge was 101/66.
[2017-10-22 16:10] VITALS: BP 102/58; PULSE 57; O2SAT 100
--- NOTE | 2017-10-22 17:23 | OPERATIVE REPORT ---
DATE OF OPERATION: 10/22/2017 PREOPERATIVE DIAGNOSIS: TRACI 3. POSTOPERATIVE DIAGNOSIS: Same. PROCEDURE: Top hat LEEP with endocervical curetting the above LEEP. SURGEON: Ana Lilia Red MD ANESTHESIA: Sedation. ESTIMATED BLOOD LOSS: 50 mL. FLUIDS: 500 mL. INDICATIONS: The patient is a 22-year-old 2, para 2 who presented with a high grade Pap in . She had biopsies consistent with TRACI 3. She continued to have a high grade Pap and biopsies consistent with TRACI 3. FINDINGS: Acetowhite epithelium noted at the 9-3 o'clock anterior area of the cervix. COMPLICATIONS: None. DRAINS: None. DISPOSITION: To recovery room in stable condition. PROCEDURE: The patient was taken the operating room where she was identified verbally and by bracelet. She was placed in dorsal supine position where sedation was performed. She was placed in dorsal lithotomy position in candy-cane stirrups. A time-out was held identifying correct patient, procedure, and positioning. Two wet towels were used to prep the patient. A coated speculum was placed into the vagina. The cervix was treated with vinegar solution. Acetowhite epithelium was noted from 9 o'clock to 3 o'clock all along the anterior lip of the cervix at the transformation zone. A top hat LEEP conization procedure was performed taking 1 slice anteriorly, 1 slice posteriorly, an endocervical specimen and then an ECC above the endocervical specimen. Bleeding was attended to with Bovie electrocautery and Astrogyn to the cervix. Estimated blood loss was 50 mL. The patient tolerated the procedure well and was taken to the recovery room in stable condition. I attest to the content of the Intraoperative Record and any orders documented therein. Any exceptions are noted below. MTDD
== END | disposition home or self-care (01) ==
LOC: X.SURG 13:01
PROVIDERS: ATTEND Obstetrics & Gynecology
DX: R87.613 High grade squamous intraepithelial lesion on cytologic smear of cervix (HGSIL) (principal); N72 Inflammatory disease of cervix uteri; J45.909 Unspecified asthma, uncomplicated; G93.5 Compression of brain; Z79.899 Other long term (current) drug therapy; F17.200 Nicotine dependence, unspecified, uncomplicated; Z82.49 Family history of ischemic heart disease and other diseases of the circulatory system; Z98.890 Other specified postprocedural states